=== PATIENT | female | born 1955 | race Caucasian/White ===

== ENCOUNTER 2018-12-08 03:08 | Emergency (ER) | payer SELFPAY ==
[~2018-12-08] VITALS: Ht 165.1 cm; Wt 68.0 kg
[2018-12-08] MEDS ORDERED: HYDROcodone-ACET 7.5/325MG TAB PO ONE (07:30)
[2018-12-08 07:51] VITALS: BP 120/90
== END 2018-12-08 07:57 | disposition home or self-care (01) ==
LOC: EDBD 03:08 → ER 03:15
DX: S92.515A Nondisplaced fracture of proximal phalanx of left lesser toe(s), initial encounter for closed fracture (principal); S46.911A Strain of unspecified muscle, fascia and tendon at shoulder and upper arm level, right arm, initial encounter; S29.011A Strain of muscle and tendon of front wall of thorax, initial encounter; F17.210 Nicotine dependence, cigarettes, uncomplicated; V43.52XA Car driver injured in collision with other type car in traffic accident, initial encounter; Y93.89 Activity, other specified; Y92.488 Other paved roadways as the place of occurrence of the external cause; Y99.8 Other external cause status
CPT/HCPCS: 29515; 71045; 73030; 73630